=== PATIENT | male | born 1985 | race Caucasian/White ===

== ENCOUNTER 2018-07-07 10:20 | Emergency (ER) | payer OTHER, SELFPAY ==
[2018-06-06 14:04] VITALS: BMI 31.4
[2018-07-07 10:21] VITALS: BP 143/81; PULSE 72; RESP 15; TEMP 36.8; O2SAT 98; BMI 37.6
--- NOTE | 2018-07-07 10:41 | ED.DCSUM_ITS ---
History of Present Illness Chief Complaint: Wound Onset: Yesterday Context: Gradual Onset Timing: Intermittent Current Severity: Mild Maximum Severity: Mild Narrative: 33-year-old male presents 1 week after excision of a pilonidal cyst at [facility] with concern for infection. He states that he has been doing well, no pain, or fever, but he has noticed discoloration of the drainage on his gauze packing. It has occasionally appeared somewhat green. It is still foul- smelling but that is unchanged from before the surgery. He is not currently on antibiotics. He has a follow-up appointment on July 13. Past Medical History - Allergies and Home Meds Allergies/Adverse Reactions: Allergies Penicillins Allergy (Verified 07/07/18 10:35) Unknown Primary Care Physician: Augie Turner MD [STAFF PHYSICIAN] - Prior records reviewed: Yes Past Medical History: - - recurrent cysts Smoking Status: Unknown if ever smoked Review of Systems General: Denies: Chills, Fever, Sweats Eyes: Denies: Visual changes - bilaterally, Diplopia ENT: Denies: Rhinorrhea, Sore throat Cardiovascular: Denies: Chest pain, Palpitations Respiratory: Denies: Dyspnea, Cough, Dyspnea on exertion Gastrointestinal: Denies: Abdominal pain, Nausea, Vomiting, Diarrhea, Melena, Hematochezia Genitourinary: Denies: Dysuria, Hematuria, Frequency Musculoskeletal: Denies: Back pain, Extremity Pain Skin: Denies: Rash, Wounds Neurological: Denies: Headache, Weakness, Numbness Physical Exam Vital Signs/Narrative: Vital Signs Temp Pulse Resp BP Pulse Ox 07/07/18 10:21 98.2 F 72 15 143/81 H 98 Inital Vital Signs reviewed: Yes General: Well nourished, Well developed, No Acute Distress Head: Normocephalic, Atraumatic Eyes: Perrl, EOMI ENT: Moist mucous membranes, No rhinorrhea Neck: Supple, Nontender Cardiovascular: Regular rate, Regular rhythm, No murmurs Respiratory: No distress, CTA bilaterally, Chest nontender Abdomen: Soft, Nontender, Nondistended, Normal bowel sounds : - - His incision is still slightly open. There is clear/white drainage. No surrounding erythema or warmth. Back: Nontender, Normal Inspection Extremities: Nontender, No edema Skin: Normal color, No rash Neurological: Alert, Oriented x3, Cranial nerves II-XII grossly intact, Normal Strength, Normal Sensation Psychological: Normal affect, Normal Mood Diagnostic/Tx/Re-eval - Medical Decision Making His white blood cell count is normal. He does not have a fever. His exam is fairly unremarkable. I discussed the case with Dr. Ramirez, who is on-call for his surgeon and reviewed the findings. She recommended treatment with oral Bactrim and close follow-up. He will call today to try to be seen early next week and return to the emergency department if worse before then. ED Disposition - Plan for ED Patient: Disposition: Home or Assisted Living Diagnosis: Chronic recurrent pilonidal cyst without abscess Instructions: ED Wound Infec After Surgery Prescriptions: Smz/Tmp Ds [Bactrim Ds] 1 tablet PO BID 7 Days #14 tablet
[2018-07-07 11:21] LABS: Absolute Lymphocyte Count 2.28 X10^3/ul (0.83-4.51); Absolute Neutrophil Count 5.3 X10^3/uL (2.0-7.7); Basophil# 0.03 X10^3/uL; Basophil% 0.3 % (0-1); Eosinophil# 0.36 X10^3/uL; Hematocrit 41.1 % (40-54); Hemoglobin 14.3 g/dl (13.0-16.5); Lymphocyte # 2.28 X10^3/ul (4.0); Lymphocyte % 25.5 % (19-41); Mean Corp Hgb Conc 34.8 g/gl (32-36); Mean Corpuscular Hgb 27.9 pg (27.0-32.0); Mean Corpuscular Volume 80.3 fL (80-94); Monocyte% 11.2 % (0-10); Neutrophil # 5.25 X10^3/uL (2.7-7.7); Neutrophil % 58.7 % (47-70); Platelet Count 304 K/mm3 (150-450); RBC Distribution Width CV 13.2 % (11.6-14.6); RBC Distribution Width SD 38.7 fl (35.1-43.9); Red Blood Count 5.12 M/mm3 (4.6-6.2)
[2018-07-07 11:24] LABS: POSITIVE COUNT NO; POSITIVE DIFFERENTIAL NO; POSITIVE MORPHOLOGY NO
[2018-07-07 12:20] VITALS: BP 141/85; PULSE 71; RESP 14; O2SAT 99
[2018-07-07] MEDS: Smz/Tmp Ds Tablet 1 TABLET PO (12:24)
--- NOTE | 2018-07-10 08:43 | ED.RN ---
LAB CALLED WITH POSITIVE WOUND CULTURE RESULTS. WOUND POSITIVE MRSA. SPOKE WITH DR. TURPIN HOME MEDICATION DOSE OF BACTRIM WILL TREAT WOUND. PATIENT ATTEMPTED TO BE CONTACTED AT THIS TIME NOTIFY OF WOUND RESULTS. PATIENT WILL JUST NEED TO FOLLOW UP WITH SURGEON AT [place] ON FOLLOW UP APPOINTMENT NO FURTHER CARE WILL NE NEEDED AT THIS TIME
--- NOTE | 2018-07-12 12:15 | ED.RN ---
WOUND CULTURE RESULT ARRIVED. VERIFIED BY DR LINDSEY TREATMENT WAS APPROPRIATE
== END 2018-07-07 12:25 | disposition home or self-care (01) ==
PROVIDERS: Emergency Provider Emergency Medicine; Family Provider Preventive Medicine Occupational Medicine; PCP Preventive Medicine Occupational Medicine
DX: L05.91 Pilonidal cyst without abscess (principal)
CPT/HCPCS: 85025; 87070; 87075; 87077; 87186; 87205; 99284; A4216